=== PATIENT | male | born 1995 | race Caucasian/White ===

== ENCOUNTER 2017-08-22 18:43 | Emergency (ER) | payer OTHER ==
--- NOTE | 2017-08-22 19:06 | EDPHY ---
General Time Seen by Provider: 08/22/17 18:52 Narrative: CHIEF COMPLAINT: Finger laceration HISTORY OF PRESENT ILLNESS: Patient presents with complaints of finger laceration. This is involving the left index finger. 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 This happened within the past hour. He had moderate bleeding that would not stop, thus he applied a finger cot. No numbness or difficulty moving the finger but does have tingling at the site. There is no difficulty bending the finger. No injury elsewhere. His tetanus is up-to-date less than 6 years ago. No other associated complaints or modifying factors. Right-hand dominant TIME OF INJURY: Less than 1 hr prior to arrival TETANUS STATUS: Less than 6 years MEDICAL/SURGICAL/SOCIAL HISTORY: Uncomplicated medical history. Nonsmoker. Lives and works here independently. REVIEW OF SYSTEMS: Ten systems reviewed and are negative unless otherwise noted in the HPI EXAMINATION General Appearance: Alert, no distress Head: normocephalic, atraumatic Cardiovascular: Symmetric radial pulses 2+. Brisk cap refill in the affected finger of the left hand. Neurological: A&O, sensory symmetric, interossei strength symmetric Skin: Warm and dry, no rash. There is a 1 cm diameter area of soft tissue avulsion involving the left index finger distal phalanx tuft. This does not involve the nail bed. No pulsatile bleeding. No foreign body. No exposure of the underlying distal phalanx. Extremities: Tenderness of the left index finger distal phalanx. Full flexion including the superficialis and profundus without difficulty. Full range of motion of the interossei. DIFFERENTIAL DIAGNOSES: Including but not limited to finger tip avulsion, partial fingertip avulsion, laceration MDM: 7:05 p.m. Accidental laceration to the left index finger tuft that is an avulsion injury. Bleeding from the capillary beds with no pulsatile bleeding. I have administered a digital block. Proceed with irrigation, surgery foam for hemostasis and re-evaluation. 8:00 p.m. Laceration was irrigated and dressed with surgeon foam and tube gauze. We have monitored the patient and he has had no bleeding with a completely dry dressing. Discharged home with wound care instructions. I would like him to keep the dressing in place for 48 hr and then change once daily with bacitracin applied. ED precautions for return of bleeding or signs of infection as discussed. He will need to follow up with his worker's compensation [facility]. Discharged in stable condition SUPERVISION: This patient was independently evaluated without direct involvement of or examination by the attending physician. ED Precautions: Worsening pain. Erythema, edema, cyanosis, pallor, paresthesia or anesthesia. - History Smoking Status: Current some day smoker - Objective Vital Signs: Initial Vital Signs Temperature (C) 98.8 F 08/22/17 18:49 Heart Rate 56 L 08/22/17 18:49 Respiratory Rate 16 08/22/17 18:49 O2 Sat (%) 96 08/22/17 18:49 O2 Delivery Mode Room Air Allergies/Adverse Reactions: No Known Allergies Allergy (Unverified 08/22/17 18:49) Home Medications: Medication Instructions Recorded NK [No Known Home Meds] 08/22/17 Departure - Departure Disposition: Home, Routine, Self-Care Clinical Impression: Soft tissue avulsion Finger laceration Qualifiers: Encounter type: initial encounter Finger: index finger Damage to nail status: without damage Foreign body presence: without foreign body Laterality: left Qualified Code(s): S61.211A - Laceration without foreign body of left index finger without damage to nail, initial encounter Condition: Good Instructions: Finger Laceration (ED), Skin Avulsion (ED) Additional Instructions: 1. Keep the dressing in place for 48 hr 2. Keep the wound covered for 7-10 days once the dressing is removed 3. Return to emergency department for any return of bleeding 4. Follow up with worker's compensation [facility] for definitive care Referrals: NONE *PRIMARY CARE P,. [Primary Care Provider] - As per Instructions Physician,Emergency Dept [Medical Doctor] - As per Instructions Stand Alone Forms: Work Comp Follow Up
== END 2017-08-22 19:28 | disposition home or self-care (01) ==
PROC: 3E0T3BZ Introduction of Anesthetic Agent into Peripheral Nerves and Plexi, Percutaneous Approach (ICD-10-PCS; principal; 2017-08-22)
DX: S61.211A Laceration without foreign body of left index finger without damage to nail, initial encounter (principal); F17.200 Nicotine dependence, unspecified, uncomplicated; W26.0XXA Contact with knife, initial encounter; Y92.69 Other specified industrial and construction area as the place of occurrence of the external cause; Y99.0 Civilian activity done for income or pay; Y93.89 Activity, other specified